=== PATIENT | male | born 1980 | race Caucasian/White ===

== ENCOUNTER 2023-04-09 12:42 | Emergency (ER) | payer OTHER ==
[~2023-04-09] VITALS: Ht 182.9 cm; Wt 84.1 kg
[2023-04-09 12:46] VITALS: TEMP 98
[2023-04-09] MEDS ORDERED: BACITRACIN 0.9 GM PACKET OINTMENT TP ONE (14:30)
[2023-04-09] MEDS ORDERED: IBUPROFEN 600 MG TABLET PO ONE (14:30)
[2023-04-09] MEDS ORDERED: PERTUSS(ACELL),DIPH,TET VAC/PF 0.5 ML SYRINGE IM. ONE (14:30)
[2023-04-09] MEDS ORDERED: LIDOCAINE 1%/EPI 1:200,000/PF 30 ML VIAL SQ ONE (14:30)
[2023-04-09 15:37] VITALS: BP 128/77; PULSE 68; RESP 18
== END 2023-04-09 16:41 | disposition home or self-care (01) ==
LOC: EMS 12:45
DX: S71.112A Laceration without foreign body, left thigh, initial encounter (principal); X58.XXXA Exposure to other specified factors, initial encounter; Y93.89 Activity, other specified; Y92.89 Other specified places as the place of occurrence of the external cause; Y99.8 Other external cause status
CPT/HCPCS: 99283; 90715; 90471; 12002; J3490